=== PATIENT | male | born 1950 | race Caucasian/White ===

== ENCOUNTER → 2023-04-22 | Outpatient (CLI) | payer MEDICARE, BC, OTHER ==
[~2023-04-22] MED LIST: ATOR10; Acetaminophen650 M1 PO; BASAGLAR K100 UNIT/8; FENOFIBRATE120 MG; JARDIANCE25 MG PO; LOW DOSE ASPIRI81 M1; Lisinopril2.5 MG PO; METFORMIN HCL500 M3 PO; OMEP20ER PO; PLAVIX75 MG; PRAMIPEXOLE D0.25 M1 PO; PREG100 PO; PREGABALIN100 MG PO
[2023-04-22 20:24] LABS: Creatinine, Urine Random 30.9 mg/dL (27.00-270.00)
== END ==
LOC: LAB 09:15 → LAB SHORT 09:15
PROVIDERS: Family Medicine
DX: E11.42 Type 2 diabetes mellitus with diabetic polyneuropathy (principal); E11.69 Type 2 diabetes mellitus with other specified complication
CPT/HCPCS: 82043; 82570

== ENCOUNTER 2024-02-04 12:13 | Observation (INO) | payer OTHER, MEDICARE, BC ==
[~2024-02-04] VITALS: Ht 170.2 cm; Wt 93.7 kg
[~2024-02-04 12:13] MED LIST changes: -ATOR10; +ATOR10 PO; -PLAVIX75 MG; +PLAVIX75 MG PO
[2024-02-04] MEDS ORDERED: DICLOFENAC SOD100 GM TOP (12:28)
[2024-02-04] MEDS ORDERED: ALLEGRA ALLERG180 MG PO (12:29)
[2024-02-04] MEDS ORDERED: BASAGLAR K100 UNIT/6 SC (12:29)
[2024-02-04] MEDS ORDERED: Methocarbamol500 MG PO (12:30)
[2024-02-04] MEDS ORDERED: Nitroglycerin 1 INCH/GM PKT TOP ONE (12:30)
[2024-02-04] MEDS ORDERED: WEGOVY0.5 MG/0.5 SC (12:32)
[2024-02-04] MEDS ORDERED: DEPO-TESTO200 MG/1 M IM (12:33)
[2024-02-04] MEDS ORDERED: Aspir 8181 MG PO (12:34)
[2024-02-04 12:48] LABS: BASOPHILS ABSOLUTE AUTO 0.02 K/mm3 (0.00-0.23); BASOPHILS PERCENT AUTO 0 % (0-2); EOSINOPHILS ABSOLUTE AUTO 0.25 K/mm3 (0.00-0.68); EOSINOPHILS PERCENT AUTO 3 % (0-6); Hematocrit 44.1 % (37.0-53.0); Hemoglobin 13.2 g/dL (13.5-17.5); IMMATURE GRAN ABSOLUTE AUTO 0.02 K/mm3 (0.00-0.10); IMMATURE GRAN PERCENT AUTO 0 % (0-1); LYMPHOCYTES ABSOLUTE AUTO 1.35 K/mm3 (0.84-5.20); LYMPHOCYTES PERCENT AUTO 15 % (21-46); MONOCYTES ABSOLUTE AUTO 0.79 K/mm3 (0.16-1.47); MONOCYTES PERCENT AUTO 9 % (4-13); Mean Corpuscular HGB 25.5 pg (26.0-34.0); Mean Corpuscular HGB Conc 29.9 g/dL (31.5-36.5); Mean Corpuscular Volume 85 fL (80-100); Mean Platelet Volume 11.7 fL (9.1-12.4); NEUTROPHILS ABSOLUTE AUTO 6.52 K/mm3 (1.96-9.15); NEUTROPHILS PERCENT AUTO 73 % (41-73); Platelet Count 220 K/mm3 (150-400); RDW Coefficient Variation 15.9 % (11.7-14.2); RDW Standard Deviation 48.5 fL (35.1-46.3); Red Blood Cell Count 5.18 M/mm3 (4.30-5.90); White Blood Cell Count 8.95 K/mm3 (4.00-11.30)
[2024-02-04 13:00] LABS: Albumin, Blood 3.1 g/dL (3.4-5.0); Albumin/Globulin Ratio 0.9 (0.8-1.8); Bilirubin, Total 0.4 mg/dL (0.1-1.0); Creatinine, Blood 0.66 mg/dL (0.60-1.20); Globulin, Blood 3.6 g/dL (2.2-4.0); Potassium, Blood 4.5 mmol/L (3.5-5.5); Total Protein, Blood 6.7 g/dL (6.4-8.2)
[2024-02-04 15:18] LABS: Anti-Xa UFH, PHA Monitoring <0.10 IU/mL; International Normalized Ratio 0.98; Prothrombin Time Results 10.5 Sec (9.7-11.5)
[2024-02-04] MEDS ORDERED: Acetaminophen 325 MG TABLET PO PRN (15:20)
[2024-02-04] MEDS ORDERED: Ondansetron 4 MG TAB PO PRN (15:25)
[2024-02-04] MEDS ORDERED: Morphine Sulfate 4 MG/1 ML Injection IV PRN (16:10)
[2024-02-04] MEDS ORDERED: Methocarbamol 500 MG Tab PO PRN (16:10)
[2024-02-04] MEDS ORDERED: Insulin Regular 100 UNIT/ML 10ML Vial SC SCH (16:30)
[2024-02-04] MEDS ORDERED: Metoprolol Succinate 25 MG TABCR PO SCH (17:00)
[2024-02-04 17:42] VITALS: BP 160/81
--- NOTE | 2024-02-04 18:15 | NUR ---
END OF SHIFT SUMMARY: PT ARRIVED ON UNIT AT 1700 WITH ALL PERSONAL BELONGINGS AND AT BEDSIDE. A&OX4 AND ABLE TO MAKE NEEDS KNOWN. SATURATION >92% ON ROOM AIR, ON TELE SHOWING SINUS IN 70-80'S AND STATED HE FELT SOME CHEST PRESSURE BUT NOT PAIN. BLOOD SUGAR CHECK DONE AND COVERAGE NOT NEEDED PER EMAR BUT WAS GIVEN A SNACK, MEDICATED PER EMAR WITH EVENING MEDS AND TOOK THEM WITHOUT ISSUES. GOT DINNER AND WAS NOTIFIED THAT HE WILL BE NPO AT MIDNIGHT FOR HIS STRESS TEST ON 02/04. PATIENT IS INDEPENDENT AND WILL USE A CANE TO GET TO THE BATHROOM. WILL NOTIFY TO ONCOMING NURSE.
--- NOTE | 2024-02-04 18:27 | NUR ---
PT ARRIVED ON UNIT @ 1700 WITH AND ALL BELONGINGS, DORIS MARC WENT OVER ADMISSION QUESTIONS AND ASSESSMENT WAS DONE.
[2024-02-04] MEDS ORDERED: OZEMPIC0.25 MG/02 SC (18:44)
[2024-02-04] MEDS ORDERED: Pregabalin 50 MG Capsule PO SCH (21:00)
[2024-02-04] MEDS ORDERED: Insulin Glargine-Yfgn 100 Unit/mL 3 ML SYR SC SCH (21:00)
[2024-02-04] MEDS ORDERED: Pramipexole DI-HCL 0.25 MG Tab PO SCH (21:00)
[2024-02-04 21:08] VITALS: BP 144/76
[2024-02-05 02:48] VITALS: BP 140/80
[2024-02-05 03:01] LABS: BASOPHILS ABSOLUTE AUTO 0.04 K/mm3 (0.00-0.23); BASOPHILS PERCENT AUTO 0 % (0-2); EOSINOPHILS ABSOLUTE AUTO 0.41 K/mm3 (0.00-0.68); EOSINOPHILS PERCENT AUTO 4 % (0-6); Hematocrit 41.2 % (37.0-53.0); Hemoglobin 12.7 g/dL (13.5-17.5); IMMATURE GRAN ABSOLUTE AUTO 0.03 K/mm3 (0.00-0.10); IMMATURE GRAN PERCENT AUTO 0 % (0-1); LYMPHOCYTES ABSOLUTE AUTO 1.77 K/mm3 (0.84-5.20); LYMPHOCYTES PERCENT AUTO 17 % (21-46); MONOCYTES ABSOLUTE AUTO 0.87 K/mm3 (0.16-1.47); MONOCYTES PERCENT AUTO 8 % (4-13); Mean Corpuscular HGB 25.9 pg (26.0-34.0); Mean Corpuscular HGB Conc 30.8 g/dL (31.5-36.5); Mean Corpuscular Volume 84 fL (80-100); Mean Platelet Volume 11.1 fL (9.1-12.4); NEUTROPHILS ABSOLUTE AUTO 7.33 K/mm3 (1.96-9.15); NEUTROPHILS PERCENT AUTO 70 % (41-73); Platelet Count 204 K/mm3 (150-400); RDW Coefficient Variation 15.9 % (11.7-14.2); RDW Standard Deviation 48.4 fL (35.1-46.3); White Blood Cell Count 10.45 K/mm3 (4.00-11.30)
[2024-02-05 03:52] LABS: Albumin, Blood 2.9 g/dL (3.4-5.0); Albumin/Globulin Ratio 0.9 (0.8-1.8); Bilirubin, Total 0.3 mg/dL (0.1-1.0); Bun/Creatinine Ratio 23.1 (12.0-20.0); Calcium, Blood 8.8 mg/dL (8.5-10.1); Creatinine, Blood 0.74 mg/dL (0.60-1.20); Globulin, Blood 3.4 g/dL (2.2-4.0); Potassium, Blood 3.8 mmol/L (3.5-5.5); Total Protein, Blood 6.3 g/dL (6.4-8.2)
--- NOTE | 2024-02-05 06:14 | NUR ---
SHIFT SUMMARY: Pt is admitted for chest pain and is a full code. Is alert and able to make needs known. ADLs have been independent. Was given PRN pain management x1. Leland reports sinus mostly in the 80s with PVCs and some trigem. Leland did report at one point wide swings in heart rate from high 30s to 90s that lasted a couple of minutes. The PT did not report anything when asked.
[2024-02-05 07:05] VITALS: BP 138/91
[2024-02-05] MEDS ORDERED: Empagliflozin 25 MG TAB PO SCH (09:00)
[2024-02-05] MEDS ORDERED: Lisinopril 20 MG Tab PO SCH (09:00)
[2024-02-05] MEDS ORDERED: Atorvastatin 40 MG Tab PO SCH (09:00)
[2024-02-05] MEDS ORDERED: Clopidogrel Bisulfate 75 MG Tab PO SCH (09:00)
[2024-02-05] MEDS ORDERED: Heparin Sodium,Porcine 5,000 UNIT/0.5 ML SDV SC SCH (09:00)
[2024-02-05] MEDS ORDERED: Loratadine 10 MG Tab PO SCH (09:00)
[2024-02-05] MEDS ORDERED: Aspirin 81 MG TabEC PO SCH (09:00)
[2024-02-05] MEDS ORDERED: Regadenoson 0.4 MG/5 ML SYRINGE ONE (12:32)
[2024-02-05 15:08] VITALS: BP 149/71
[2024-02-05] MEDS ORDERED: METO25ER PO (16:20)
--- NOTE | 2024-02-05 16:47 | NUR ---
DISCHARGE NOTE: PATIENT'S IV AND TELE REMOVED. HE GOT DRESSED AND GATHERED HIS BELONGINGS. PATIENT CALLED HIS TO COME PICK HIM UP FROM THE [facility]. WENT OVER DISCHARGE WITH PATIENT. PATIENT WHEELED DOWN BY PAEDODONTIST TO [facility]. NO SIGNS OR SYMPTOMS OF DISTRESS DURING DISCHARGE.
== END 2024-02-05 17:11 | disposition home or self-care (01) ==
LOC: ER 12:13 → MEDS 12:14 → ER 16:46 → MEDS 17:21
PROVIDERS: Student in an Organized Health Care Education/Training Program; ADMIT Internal Medicine
DX: R07.89 Other chest pain (principal); I25.10 Atherosclerotic heart disease of native coronary artery without angina pectoris; I10 Essential (primary) hypertension; E11.9 Type 2 diabetes mellitus without complications; E78.5 Hyperlipidemia, unspecified; K21.9 Gastro-esophageal reflux disease without esophagitis; G25.81 Restless legs syndrome; Z95.5 Presence of coronary angioplasty implant and graft; E66.9 Obesity, unspecified; Z68.32 Body mass index [BMI] 32.0-32.9, adult; Z87.891 Personal history of nicotine dependence; Z79.82 Long term (current) use of aspirin; Z79.4 Long term (current) use of insulin; Z79.02 Long term (current) use of antithrombotics/antiplatelets; Z79.899 Other long term (current) drug therapy
CPT/HCPCS: 36415; 71046; 71260; 78452; 80053; 82947; 83735; 83880; 84484; 85025; 85379; 85520; 85610; 85730; 93005; 93010; 93017; 93306; 94760; 96372; 99285-25; A9270; A9500; G0378; J1644; J1815; J2785; Q9967